=== PATIENT | male | born 1980 | race Asian ===

== ENCOUNTER → 2017-06-03 | Outpatient (CLI) | payer BC ==
--- NOTE | 2017-06-03 09:26 | DIAGNOSTIC IMAGING REPORT ---
ULTRASOUND TESTES AND SCROTUM CLINICAL HISTORY: Testicular pain. COMPARISON STUDY: Scrotal ultrasound dated 03/21/2016. TECHNIQUE: Real-time, grayscale, and color Doppler sonography of the testes and scrotum is performed. Images are reviewed in the transverse and longitudinal planes. FINDINGS: The testes are normal in size and homogeneous in echotexture. The right testis measures 4.0 x 2.3 x 2.9 cm and the left testis measures 4.2 x 2.1 x 2.9 cm. No intratesticular mass is seen. Scattered microliths are noted in the right testis. Testicular blood flow is normal and symmetric. Normal Doppler waveforms are identified in both testes. The epididymal heads are normal in appearance. The right epididymal head measures 1.0 cm in length and the left epididymal head measures 1.0 cm in length. No varicocele or hydrocele is seen. IMPRESSION: Unremarkable sonographic assessment of the testes and scrotum. Electronically signed by: Shravan Gamez M.D. 06/03/2017 9:25 AM Dictated Date/Time: 06/03/2017 9:23 AM
--- NOTE | 2017-06-03 09:27 | DIAGNOSTIC IMAGING REPORT ---
ABDOMEN FOR HERNIA CLINICAL HISTORY: TESTICULAR PAIN pain TECHNIQUE: Ultrasound COMPARISON STUDY: None FINDINGS: No evidence for hernia. Echogenicity of the subcutaneous structures is unremarkable. IMPRESSION: No evidence for hernia by ultrasound criteria The above report was generated using voice recognition software. It may contain grammatical, syntax or spelling errors. Electronically signed by: Brennan Benson M.D. 06/03/2017 9:26 AM Dictated Date/Time: 06/03/2017 9:24 AM
== END | disposition home or self-care (01) ==
LOC: C.ULTR 08:35
PROVIDERS: ATTEND Family Medicine
DX: N50.819 Testicular pain, unspecified (principal)

== ENCOUNTER → 2018-03-17 | Outpatient (CLI) | payer OTHER ==
--- NOTE | 2018-03-17 09:04 | DIAGNOSTIC IMAGING REPORT ---
L KNEE 1 OR 2 VIEWS ROUTINE CLINICAL HISTORY: M25.562 pain COMPARISON: None. DISCUSSION: Minimal degenerative change medial joint compartment. No significant joint effusion. No evidence for fracture or dislocation. There is no evidence for soft tissue swelling. IMPRESSION: Minimal degenerative change medial joint compartment. No acute process. The above report was generated using voice recognition software. It may contain grammatical, syntax or spelling errors. Electronically signed by: Brennan Benson M.D. 03/17/2018 9:03 AM Dictated Date/Time: 03/17/2018 9:02 AM
== END | disposition home or self-care (01) ==
LOC: C.RAD 08:41
PROVIDERS: ATTEND Family Medicine
DX: M25.562 Pain in left knee (principal)